=== PATIENT | male | born 1945 | race Caucasian/White ===

== ENCOUNTER 2019-09-14 11:21 | Outpatient (RCR) | payer MEDICARE, SELFPAY | END 2019-09-14 23:59 | disposition home or self-care (01) | LOC: ANHAUDIO 11:21 | PROVIDERS: PCP Family Medicine; Visit Provider Family Medicine | DX: Z46.1 Encounter for fitting and adjustment of hearing aid (principal) | CPT/HCPCS: 92592 ==

== ENCOUNTER 2019-09-22 07:32 | Outpatient (RCR) | payer SELFPAY | END 2020-04-14 14:24 | disposition home or self-care (01) | LOC: ANHCPRIII 07:32 | PROVIDERS: Visit Provider Family Medicine | DX: I25.10 Atherosclerotic heart disease of native coronary artery without angina pectoris (principal); I10 Essential (primary) hypertension | CPT/HCPCS: 99199 ==

== ENCOUNTER → 2020-09-16 15:44 | Outpatient (CLI) | payer MEDICARE, SELFPAY ==
--- NOTE | ~2020-09-16 | XR_ITS ---
XR hip LT 2V w AP pelvis 09/16/2020 15:54 Indication: Left hip pain Procedure: 4 views left hip including AP pelvis Comparison: No prior studies for comparison. Findings: There is lower lumbar spondylosis partially visualized. 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 Osteopenia. Small bone island right femur proximally. No fracture or traumatic malalignment. No focal soft tissue abnormality. No foreign bodies. There are pelvic phleboliths. Impression: 1: Mild symmetric osteoarthritis of the hips. Reviewed, dictated and finalized at location A. NUT GROWER Impression: 1: Mild symmetric osteoarthritis of the hips.
== END ==
PROVIDERS: Visit Provider Nurse Practitioner Family
DX: M16.0 Bilateral primary osteoarthritis of hip (principal)
CPT/HCPCS: 73502

== ENCOUNTER → 2020-09-23 13:51 | Outpatient (CLI) | payer MEDICARE, SELFPAY ==
--- NOTE | ~2020-09-23 | US_ITS ---
EXAMINATION: US scrotum doppler DATE: 09/23/2020 14:20 INDICATION: Left testicular pain. TECHNIQUE: Testicular sonogram utilizing grayscale and Doppler COMPARISON: None. FINDINGS: The right testis and epididymis are not visualized and were reportedly resected in 1965. The left jhon tis measures 2.5 x 1.2 x 2.5 cm. Normal grayscale appearance and normal-appearing intratesticular vas cular flow on color Doppler. Interval decrease in size of a now 4 x 4 x 1 mm anechoic to mucous cyst at the periphery of the left testis. Again noted are a few tiny microliths at the periphery of the le ft testis in the region of the tunica cyst. Also unchanged are a few larger echogenic and shadowing e xtratesticular scrotoliths. There are couple 3-4 mm anechoic left epididymal cysts. The left epididym is is otherwise normal with normal vascular flow. There is no varicocele or hydrocele. IMPRESSION: 1. Decrease in size of a benign tunica cyst at the periphery of the left testis with a few unchanged adjacent tiny microliths. A few unchanged larger scrotoliths in the left hemiscrotum. 2. Right testis and epididymis not visualized and reportedly surgically absent. Reviewed, dictated and finalized at location B. IMPRESSION: 1. Decrease in size of a benign tunica cyst at the periphery of the left testi s with a few unchanged adjacent tiny microliths. A few unchanged larger scrotol iths in the left hemiscrotum. 2. Right testis and epididymis not visualized and reportedly surgically absent.
== END ==
PROVIDERS: PCP Family Medicine; Visit Provider Nurse Practitioner Family
DX: N50.812 Left testicular pain (principal)
CPT/HCPCS: 76870; 93976

== ENCOUNTER 2022-02-28 11:28 | Outpatient (CLI) | payer MEDICARE, SELFPAY ==
[2022-02-28 11:49] LABS: Basophils Absolute Auto 0.1 K/mm3 (0.0-0.1); Eosinophils Absolute Auto 0.4 K/mm3 (0-0.3); Eosinophils Percent Auto 4.4 % (0-4.4); Hematocrit 44.2 % (42.0-52.0); Hemoglobin 13.8 g/dL (14.0-18.0); Immature Granulocyte Absolute 0.07 K/mm3 (0.00-0.031); Immature Granulocyte Percent A 0.9 % (0-0.5); Lymphocytes Absolute Auto 2.38 K/mm3 (0.9-3.2); Mean Corpuscular HGB Conc 31.2 g/dl (32-36); Mean Corpuscular Hemoglobin 30.3 pg (26-34); Mean Corpuscular Volume 96.9 fl (80-100); Mean Platelet Volume 10.5 fl (7.4-10.4); Monocytes Absolute Auto 0.8 K/mm3 (0.1-0.6); Monocytes Percent Auto 9.4 % (2.6-8.5); Neutrophils Absolute Auto 4.3 K/mm3 (1.3-6.7); Neutrophils Percent Auto 54.3 % (45.5-73.1); Platelet Count Result 144 k/mm3 (150-375); Red Blood Count 4.56 M/mm3 (4.6-6.20); Red Cell Distribution Width 13.8 % (11.5-14.5); White Blood Count 7.9 K/mm3 (4.5-10.0)
[2022-02-28 11:56] LABS: Alanine Aminotransferase 26 U/L (6-50); Albumin Level 4.5 g/dL (3.5-5.1); Alkaline Phosphatase 70 U/L (38-126); Anion Gap 8 mmol/L (8-16); Aspartate Amino Transferase 31 U/L (17-59); Bilirubin,Total 0.3 mg/dL (0.2-1.3); Blood Urea Nitrogen 15 mg/dL (9-20); Carbon Dioxide 26 mmol/L (22-30); Chloride 105 mmol/L (98-107); Estimated Glomerular Filt Rate > 60; Glucose 102 mg/dL (65-110); Potassium 4.5 mmol/L (3.4-5.0); Sodium 139 mmol/L (137-145)
== END 2022-02-28 11:29 | disposition home or self-care (01) ==
PROVIDERS: PCP Family Medicine; Visit Provider Internal Medicine Cardiovascular Disease
DX: I50.32 Chronic diastolic (congestive) heart failure (principal)
CPT/HCPCS: 36415; 80053; 85025

== ENCOUNTER 2022-06-21 14:31 | Outpatient (CLI) | payer MEDICARE, SELFPAY ==
--- NOTE | ~2022-06-21 | CT_ITS ---
EXAMINATION: CT abdomen pelvis w con INDICATION: Right lower quadrant pain TECHNIQUE: Computed tomographic images of the abdomen and pelvis were obtained after the administrati on of 100 cc of Omnipaque 350 intravenous contrast. The dose-length product (DLP) was 1323.74 mGy-cm. Automated exposure control and iterative reconstruction technique were employed. COMPARISON: None available FINDINGS: Minimal dependent atelectasis is present in the lung bases. The heart size is normal. Round ed atelectasis noted in the lingula adjacent to a healed left rib fracture. The gallbladder is surgic ally absent. There is mild enlargement of the common bile duct and central intrahepatic ducts which i s likely due to post cholecystectomy state. The liver, spleen, pancreas, and adrenal glands are marga l. Hypoattenuating lesions in the kidneys, measuring up to 6 mm on the right, are too small to charac terize but likely represent cysts. No pathologically enlarged abdominal or pelvic lymph nodes are kevin ntified. There is no free intraperitoneal gas or evidence of bowel obstruction. There is a small umbi lical hernia containing fat. Colonic diverticulosis is present without evidence of diverticulitis. Th ere is severe lumbar spondylosis. Prostatomegaly is noted. There is circumferential wall thickening o f the urinary bladder. IMPRESSION: 1. Circumferential wall thickening of the urinary bladder which could reflect cystitis versus chronic outlet obstruction. 2. Diverticulosis without evidence of diverticulitis. Reviewed, dictated and finalized at location A. [employer] SALES REPRESENTATIVE IMPRESSION: 1. Circumferential wall thickening of the urinary bladder which could reflect c ystitis versus chronic outlet obstruction. 2. Diverticulosis without evidence of diverticulitis.
== END 2022-06-21 14:32 | disposition home or self-care (01) ==
PROVIDERS: PCP Family Medicine; Visit Provider Physician Assistant
DX: R10.31 Right lower quadrant pain (principal); R10.813 Right lower quadrant abdominal tenderness; K57.30 Diverticulosis of large intestine without perforation or abscess without bleeding
CPT/HCPCS: 74177; Q9967

== ENCOUNTER 2022-08-21 10:55 | Outpatient (CLI) | payer MEDICARE, SELFPAY ==
[2022-08-21 11:34] LABS: Alanine Aminotransferase 28 U/L (6-50); Aspartate Amino Transferase 41 U/L (17-59)
== END 2022-08-21 10:56 | disposition home or self-care (01) ==
PROVIDERS: PCP Family Medicine; Visit Provider Podiatrist Foot & Ankle Surgery
DX: B35.1 Tinea unguium (principal)
CPT/HCPCS: 36415; 84450; 84460

== ENCOUNTER → 2023-01-03 14:33 | Outpatient (CLI) | payer MEDICARE, SELFPAY ==
--- NOTE | ~2023-01-03 | XR_ITS ---
EXAM: XR knee LT 3V DATE: 01/03/2023 14:46 HISTORY: M25.562 - Pain in left knee . COMPARISON: 02/01/2014. FINDINGS: Normal mineralization. No fracture or dislocation. No lytic or blastic lesion. Mild medial joint space narrowing. Mild tricompartmental osteophytosis. Quadriceps enthesopathy. No erosion or p eriosteal change. Vascular calcifications. Small knee joint effusion. IMPRESSION: Mild tricompartmental left knee osteoarthritis. Reviewed, dictated and finalized at location K.
== END ==
PROVIDERS: PCP Physician Assistant; Visit Provider Physician Assistant
DX: M17.12 Unilateral primary osteoarthritis, left knee (principal)
CPT/HCPCS: 73562

== ENCOUNTER 2023-02-11 11:00 | Outpatient (RCR) | payer MEDICARE, SELFPAY ==
--- NOTE | 2023-01-21 09:44 | OPREHPOC ---
Outpatient Therapy Plan of Care This is a Multidisciplinary Plan of Care that may contain components documented by all disciplines (PT, OT, and ST.) PT Problem 1 PT Problem #1 Knowledge Deficit PT Goal 1 Goal 1* pt indep with HEP PT Problem 2 PT Problem #2 Pain PT Goal 1 Goal 1* pain at worst rating of 7/10 2* pt report walking tolerance of 40 min PT Problem 3 PT Problem #3 Impaired Range of Motion PT Goal 1 Goal sitting active L knee ROM 1* flexion 120' 2* extension 0' 3* hamstring length with supine SLR 50' PT Problem 4 PT Problem #4 Impaired Strength PT Goal 1 Goal 1* pt able to perform 20 reps of mat strengthening exercises L LE
--- NOTE | 2023-01-21 09:44 | PTOPEVAL1 ---
Assessment and note entered by Candi Saunders, PT Evaluation Information Assessment Status Evaluation Diagnosis pain L knee Onset November 2022 Subjective Information about 2 months ago, more knee pain, nothing happened to hurt his knee; ACTIVE: indep with all home and self care tasks, walk dogs, except mow yard; use cane for balance, have used for past few years off/on, but now almost all the time; can do all his usual things, but pain in his knee makes him take longer to do things; does not do any fitness exercises at home; xray report stated: mild tricompartmental OA ; Reported Pain Level Pain Score Self Report Additional Pain Score Comments pain range in past week 2-10/10; hurts medial and lateral patellar areas--binding up, not able to bend all the way; use cane all the time now, was PRN; feels like going to give out sometimes; discussed use of knee support brace--velcro; use grocery cart with shopping; increase pain with stairs, walking tolerance 30 min, then have to sit down have had more R hip and back pain since knee worse instructed on stair pattern, single leg pattern decrease pain with sit/rest, muscle cream have not tried ice- instruct on PRN use of heat/ ice, has tried heat, maybe helps a little to ease it Assessment PT Clinical Summary Cesar has the diagnosis of L knee pain. His medical history includes low back pain, L hip pain and use a cane due to balance, for the past few years. Xray report states mild tricompartmental OA. He does not do any leg exercises. With the evaluation: decreased L knee flexion and extension AROM and strength, with flexion causing more pain; tightness over hamstring and quad- anterior hip; unable to tolerate single leg standing on L due to pain in knee and decreased balance. Skilled PT services are indicated for modalities to decrease pain, therapeutic exercises to increase hip and knee strength and flexibility and education for home exercises and pain control. Plan of Care Interventions Electrical Stimulation,Hot Pack/Cold Pack,Manual T
--- NOTE | 2023-02-11 11:37 | PTOPDC ---
Assessment and note entered by Candi Saunders, PT Evaluation Information Assessment Status Discharge Diagnosis pain L knee Onset November 2022 Subjective Information Cesar reports: knee is better; doing his exercises at home; feel like ready to be finished with therapy. use cane when walking on uneven surfaces Reported Pain Level Pain Score Self Report Additional Pain Score Comments pain range in the past week 1-5/10; inside knee still hurts, but outside is feeling better reported walking tolerance 45 min continuous walking when walk the dogs; decrease pain with ice, stim unit, heat, linament, heat; Assessment PT Clinical Summary Cesar has received 7 PT sessions. He uses the cane PRN for uneven surfaces, for safety. Compared to the initial evaluation: he has improved in all areas: pain rating decreased from 2-10/10 to 1-5/10; reported walking tolerance increased 30 to 45 minutes; knee active flexion ROM and hamstring length with supine SLR; strength with mat and standing LE exercises; education completed for HEP and self management of pain. The goals were achieved. Discharge PT services. Plan of Care PT Services Indicated No
== END 2023-02-11 13:09 | disposition home or self-care (01) ==
LOC: ANHPT 11:00
PROVIDERS: PCP Physician Assistant; Visit Provider Physician Assistant
DX: M25.562 Pain in left knee (principal)
CPT/HCPCS: 97110; 97112; 97140; 97161; 97530

== ENCOUNTER 2023-04-15 15:31 | Outpatient (CLI) | payer MEDICARE, SELFPAY ==
[2023-04-15 16:32] LABS: Basophils Absolute Auto 0.1 K/mm3 (0.0-0.1); Basophils Percent Auto 0.7 % (0.2-1.2); Eosinophils Absolute Auto 0.2 K/mm3 (0-0.3); Eosinophils Percent Auto 2.2 % (0-4.4); Hematocrit 45.3 % (42.0-52.0); Hemoglobin 14.1 g/dL (14.0-18.0); Immature Granulocyte Percent A 0.9 % (0-0.5); Lymphocytes Absolute Auto 2.22 K/mm3 (0.9-3.2); Lymphocytes Percent Auto 20.1 % (18.3-44.2); Mean Corpuscular HGB Conc 31.1 g/dl (32-36); Mean Corpuscular Hemoglobin 30.1 pg (26-34); Mean Corpuscular Volume 96.6 fl (80-100); Mean Platelet Volume 10.6 fl (7.4-10.4); Monocytes Absolute Auto 1.2 K/mm3 (0.1-0.6); Monocytes Percent Auto 10.4 % (2.6-8.5); Neutrophils Absolute Auto 7.3 K/mm3 (1.3-6.7); Neutrophils Percent Auto 65.7 % (45.5-73.1); Platelet Count Result 178 k/mm3 (150-375); Red Blood Count 4.69 M/mm3 (4.6-6.20); Red Cell Distribution Width 13.9 % (11.5-14.5); White Blood Count 11.1 K/mm3 (4.5-10.0)
[2023-04-15 16:42] LABS: CRP 7.8 mg/dL (<1.0); Uric Acid 4.1 mg/dL (3.5-8.5)
[2023-04-15 17:29] LABS: Erythrocyte Sedimentation Rate 20 mm/hr (0-20)
== END 2023-04-15 15:32 | disposition home or self-care (01) ==
PROVIDERS: PCP Family Medicine; Visit Provider Family Medicine
DX: M25.50 Pain in unspecified joint (principal); L03.90 Cellulitis, unspecified
CPT/HCPCS: 36415; 84550; 85025; 85652; 86140

== ENCOUNTER 2023-08-09 08:05 | Outpatient (CLI) | payer MEDICARE, SELFPAY ==
--- NOTE | 2023-08-09 08:18 | ECG_ITS ---
Measurements Intervals [place] Rate: 61 P: 58 SD: 192 QRS: 53 QRSD: 106 T: 25 QT: 416 QTc: 421 Interpretive Statements SINUS RHYTHM WITHIN NORMAL LIMITS NO PREVIOUS ECG AVAILABLE FOR COMPARISON Electronically Signed On 08-09-2023 13:50:13 RN MILITARY by Murali Vivar M.D.
[2023-08-09 08:51] LABS: Phenytoin Dilantin 9 ug/mL (10-20)
== END 2023-08-09 08:06 | disposition home or self-care (01) ==
LOC: ANHSURGERY 08:10
PROVIDERS: Anesthesiology; PCP Family Medicine; Visit Provider Surgery
DX: K40.90 Unilateral inguinal hernia, without obstruction or gangrene, not specified as recurrent (principal); I10 Essential (primary) hypertension; G40.909 Epilepsy, unspecified, not intractable, without status epilepticus; Z01.818 Encounter for other preprocedural examination
CPT/HCPCS: 36415; 80185; 86850; 86900; 86901; 93005

== ENCOUNTER 2023-08-15 00:54 | Day surgery (SDC) | payer MEDICARE, SELFPAY ==
--- NOTE | 2023-08-08 09:50 | PC.NURSE ---
Report to the Outpatient Waiting Room, entrance under the green pavilion located off [facility], at time _1200 on date __08/15/23 . Planned Procedure Time: __2:00PM . Time changes happen often and if your time is changed the preop area will call you the afternoon before. - You and your visitor will be asked to self-screen and do not enter if you have any COVID symptoms. - A mask is optional within the hospital at this time. Patients may have clear liquids (water, carbonated beverages, clear teas, apple juice) until 3 hours prior to surgery( 11:00 AM) with a maximum of 20 ounces. - No food from midnight until time of surgery - Infants may have breast milk until 4 hours before surgery, infant formula 6 hours prior to surgery. - Children will be allowed to drink immediately following surgery. If applicable, please bring a bottle or sippy cup to assist with drinking. Juice, water, soda, and popsicles are readily available. For infants on formula, please bring formula the day of surgery. Pacifiers are allowed. Take the following medications with a SIP of water the morning of surgery: _LEVOTHYROXINE,PAROXETINE,PHENYTOIN, PREGABALIN DO NOT STOP ANY OF YOUR OTHER PRESCRIPTION MEDICATIONS PRIOR TO SURGERY ?EXCEPT THE FOLLOWING Medications to discontinue per physician __HOLD VITAMINS AND SUPPLEMENTS 3 DAYS PRE OP.LAST DOSE 08/11/23. MAY CONTINUE ASPIRIN [address] WILKINSON BUT DO NOT TAKE MORNING OF SURGERY Please no make-up, nail yi, hairspray, perfume, deodorant, or body powder the day of surgery. No jewelry (including any body piercings) or valuables the day of surgery, leave them at home. Please take a shower or bath the night before, or the morning of, surgery with an antibacterial soap. Wear comfortable, loose fitting clothing. Children are encouraged to wear pajamas. - Jewelry must be removed prior to entering the operating room. Rings and piercings that are not removed may be cut off. - The hospital will not accept responsibility for valuables. - Please leave all valuables, including medications, at home the day of surgery. If you are going home after surgery, a licensed truck driver's offsider must drive you home. - NO public transportation without another adult if you receive anesthesia. - We recommend that an adult stay with you for 24 hours following discharge. - We also recommend that you do not drive, make important decision, drink alcoholic beverages, or take any drugs that were not prescribed by your health care provider for at least 24 hours after your discharge time. For Pediatric surgeries, we recommend two adults accompany the child home. Follow any additional instructions given to you from your surgeon. If you or anyone in your household have experienced Covid symptoms in the past week, please notify your surgeon or the nurse liaison at the phone number below for possible testing. Telephone instructions given to _PATIENT and asked if any additional questions and then verbalized understanding. Patient advised to call surgeon office or pre surgery nurse liaison [phone] if any additional questions.
[2023-08-08 10:06] VITALS: BMI 37.5
[2023-08-15] VITALS (9 sets, daily range): BP systolic 110–152; BP diastolic 47–87; PULSE 64–82; RESP 14–18; TEMP 36.2–36.7; O2SAT 90–98
--- NOTE | 2023-08-15 11:13 | WPDHPUPDATE1 ---
History and Physical Update Update Date/Time: 08/15/23 11:13 History and Physical has been reviewed, including an updated exam of the patient. There are NO changes in the patient's condition. Risks, benefits, and alternatives have been discussed and questions answered. Patient agrees to proceed with procedure.
[2023-08-15] MEDS: ACETAMINOPHEN 500 MG TABLET 1000 MG PO (12:05)
[2023-08-15] MEDS: LACTATED RINGERS 1,000 ML 30 ML IV CONT ×2 (12:49→15:22)
[2023-08-15] MEDS: KETOROLAC 15 MG/ML VIAL (*BKC) IV PUSH (12:51)
[2023-08-15] MEDS: ceFAZolin 2 GM/D5W 50 ML 2 GM/50 ML BAG IVPB (13:38)
[2023-08-15] MEDS: BUPIVACAINE/EPINEPHRINE 0.5% 30 ML VIAL INFILTRATE (14:05)
--- NOTE | 2023-08-15 14:49 | W.PM.PROC2 ---
Procedure Note - Detailed Date of Procedure 08/15/23 Pre-op Diagnosis Left Inguinal Hernia Post-op Diagnosis Same Procedure Performed robotic assisted left inguinal hernia repair with mesh Surgeon Julissa Lozada MD Anesthesia General Indications 78 y/o M c LIH and worsening groin pain over last few weeks Findings pantaloon left inguinal hernia, indirect>direct Description of Procedure Patient was brought into the operating room and placed in the supine position. After adequate induction of general anesthesia, the patient was prepped and draped in normal sterile fashion. A time-out was then done to verify the patient's identity, as well as the procedure being performed. I began by making a 8 mm incision in the supraumbilical region, a Veress needle was then placed into the peritoneal cavity. CO2 gas was then insufflated and after adequate pneumoperitoneum was achieved, the Veress needle was removed. I then placed an 8 mm trocar through this incision. I then placed the laparoscopr through this trocar site and under direct visualization placed 2 further 8 mm ports in the right and left mid abdomen. The Octmamii robot was then docked to the 3 trocar sites. I then scrubbed out and went to the robotic console. Upon examining the pelvis, it was noted that the patient had a large left inguinal hernia. The right side was examined and no hernia defect was noted, though there was scarring from previous repair. I began by making a preperitoneal flap approximately 6 cm superior to the defect. This flap was carried medially past the umbilical ligaments and laterally to the transversalis. Of note, there was a lot of fatty tissue within this plane making the dissection quite difficult. I then began dissection of my medial compartment taking this down to the pubic tubercle. A small direct defect was encountered and reduced. I then began the lateral dissection taking this down to the transversalis fascia. Once these compartments were achieved, I began dissection around the cord structures. A moderate sized indirect hernia was noted at this point. Using careful dissection, was able to reduce indirect hernia sac off the cord structures. I also reduced a large lipoma of the cord. Once this was adequately done, I went ahead and placed a large piece of 3D Max mesh into the abdominal cavity. The mesh was carefully positioned, centering the center of the mesh over the larger indirect defect. Once this was done, was very satisfied with our repair. Using 3-0 Vicryl sutures, I tacked the mesh medially to Meño's ligament. Two lateral sutures were placed from the mesh to the transversalis fascia. I then closed the peritoneal flap with a running 2.0 V Lock suture. The abdomen was then desufflated, and all ports were removed. All incisions were then closed with the 4.0 monocryl suture. Dermabond was placed on each wound. The patient tolerated the procedure well, was extubated in the operating room postoperatively, and will now be transferred to the recovery room in stable condition. Implants large 3DMax mesh Estimated Blood Loss 10 Drains No Packing No Pathology None sent Complications No immediate complications Condition Stable Disposition PACU [facility] Billing Surgery - Charge Forward: Surgery Billing
--- NOTE | 2023-08-15 17:35 | SUR.PHASEII ---
1650 PT UP TO RESTROOM, VOIDED SUCCESSFULLY.
--- NOTE | 2023-09-11 13:03 | WPDANESEPPF ---
Anes - Initial Pre Proc Eval Procedure: Operation Date: 08/15/23 14:00 Proposed Procedures p Robotic Assisted Laparoscopic Left Inguinal Hernia Repair with Mesh - Julissa Lozada MD Date/Time: 09/11/23 13:03 Surgeon: Julissa Lozada MD Pre Op Diagnosis: Left Inguinal Hernia Patient Data Age: 78 Gender: M Height: 1.7 m Weight: 110 kg Last Vital Signs Temp 36.2 C L 08/15/23 14:55 Pulse 72 08/15/23 16:50 Resp 14 08/15/23 15:50 BP 137/69 08/15/23 16:50 Pulse Ox 95 08/15/23 16:00 O2 Del Method Room Air 08/15/23 16:00 O2 Flow Rate 6 08/15/23 15:10 Allergies Allergy/AdvReac Type Severity Reaction Status Date / Time No Known Allergies Allergy Unknown Verified 09/06/23 13:21 Home Medications Medication Instructions Recorded Confirmed Type aspirin 81 mg tablet,delayed 81 mg PO DAILY 08/25/19 09/06/23 History release zrxmbtlvqar-vpjuqubcz-gxo C-Mn 500 1 cap PO DAILY 08/25/19 09/06/23 History mg-400 mg capsule (Glucosamine Chondroitin Maximum Strength) omega-3 fatty acids 1,000 mg 1,000 mg PO DAILY 08/25/19 09/06/23 History capsule (Fish Oil Concentrate) pregabalin 150 mg capsule (Lyrica) 150 mg PO TID 08/26/19 09/06/23 History empagliflozin 10 mg tablet 10 mg PO DAILY CHF 04/04/22 09/06/23 History (Jardiance) atorvastatin 80 mg tablet See Rx Instructions .Route 09/12/22 09/06/23 Rx .COMPLEX #100 tabs phenytoin sodium extended 100 mg See Rx Instructions .Route 04/15/23 09/06/23 Rx capsule .COMPLEX #500 caps tamsulosin 0.4 mg capsule (Flomax) 0.8 mg PO QHS #180 caps 05/13/23 09/06/23 Rx fenofibrate 160 mg tablet See Rx Instructions .Route 06/10/23 09/06/23 Rx .COMPLEX #100 tabs levothyroxine 88 mcg tablet See Rx Instructions .Route 06/10/23 09/06/23 Rx .COMPLEX #100 tabs paroxetine HCl 20 mg tablet 20 mg PO DAILY #90 tabs 07/15/23 09/06/23 Rx B6 1.7 mg-folic 400 mcg-B12 2.4 1 cap PO DAILY 07/31/23 09/06/23 History vzy-nemmfm-qmleynpdanjh oral capsule (Neuriva Plus Brain Performance) finasteride 5 mg tablet 5 mg PO DAILY 07/31/23 09/06/23 History fluticasone propionate 0.05 % 1 applic topical DAILY 07/31/23 09/06/23 History topical cream multivitamin 1 tablet PO QPM 07/31/23 09/06/23 History terbinafine 250 mg oral 1 ea miscellaneous WEEKLY 07/31/23 09/06/23 History tablet-hydroxypropyl chitosan 1 % topical kit sacubitril 49 mg-valsartan 51 mg 1 tablet PO BID 08/08/23 09/06/23 History tablet (Entresto) vibegron 75 mg tablet (Gemtesa) 75 mg PO DAILY 08/08/23 09/06/23 History Patient hx anesthesia problems: none Family hx anesthesia problems: none Results Review: All pre-operative results and documents have been reviewed as part of the pre-operative evaluation. [facility] Past Medical History Medical History BPH loc w urin obs/LUTS Chronic diastolic CHF (congestive heart failure) Prurigo nodularis Surgical History Surgical History (Updated 09/06/23 @ 13:41 by Indu Arambula [facility]) History of appendectomy History of cholecystectomy History of shoulder surgery bilateral Hx of inguinal hernia repair robotic assisted left inguinal hernia repair with mesh 08/15/23 PDC Family History Family History Father Hypertension Cerebrovascular accident Family history of coronary artery disease Mother Family history of primary malignant neoplasm of liver Social History Social History Smoking packs per day: 3 Smoking cigarettes per day: 60.0 Years smoked: 15 Smoking pack-years: 45.00 Smoking status: Former smoker Tobacco type: cigarettes Second hand tobacco smoke exposure: Yes Smoking end date: 07/08/91 Alcohol intake: never Alcohol use details: rare Substance use: never Substance use type: does not use Living arrangements: with family
== END 2023-08-15 17:10 | disposition home or self-care (01) ==
PROVIDERS: PCP Family Medicine; Visit Provider Surgery
PROC: 8E0Y4CZ Robotic Assisted Procedure of Lower Extremity, Percutaneous Endoscopic Approach (ICD-10-PCS; CPT 49650; principal; 2023-08-15 14:00)
DX: K40.90 Unilateral inguinal hernia, without obstruction or gangrene, not specified as recurrent (principal); I50.32 Chronic diastolic (congestive) heart failure; I11.0 Hypertensive heart disease with heart failure; G47.33 Obstructive sleep apnea (adult) (pediatric); N40.1 Benign prostatic hyperplasia with lower urinary tract symptoms; N13.8 Other obstructive and reflux uropathy; Z87.891 Personal history of nicotine dependence; Z79.84 Long term (current) use of oral hypoglycemic drugs
CPT/HCPCS: 49650; S2900; 36415; 80185; 86850; 86900; 86901; 93005; A9270; C1781; J0690; J1100; J1885; J2001; J2250; J2405; J2704; J3010; J7120

== ENCOUNTER 2024-09-23 10:19 | Outpatient (CLI) | payer MEDICARE, SELFPAY ==
--- NOTE | ~2024-09-23 | XR_ITS ---
Right Knee Technique: AP and lateral views were obtained. Clinical History: Pain Findings: No fracture or dislocation is seen. Osseous alignment is anatomic. Joint spaces are preserv ed, with minimal patellar spurring. Soft tissues are unremarkable. No joint effusion is seen. Impression: Minimal patellar spurring. Reviewed, dictated and finalized at location . Impression: Minimal patellar spurring.
== END 2024-09-23 10:20 | disposition home or self-care (01) ==
PROVIDERS: PCP Family Medicine; Visit Provider Family Medicine
DX: M25.561 Pain in right knee (principal); M25.562 Pain in left knee
CPT/HCPCS: 73560

== ENCOUNTER 2024-12-14 13:25 | Outpatient (CLI) | payer MEDICARE, SELFPAY ==
--- NOTE | ~2024-12-14 | XR_ITS ---
EXAMINATION: XR chest 2V Exam Date/Time: 12/14/2024 13:28 CDT HISTORY: I50.32 - Chronic diastolic (congestive) heart failure Comparison: 09/16/2012; CT abdomen pelvis 06/21/2022. RESULT: Lines, tubes, and devices: None. Lungs and pleura: Mild diffuse reticular opacities. Fissural fluid. Chronic focus of rounded atelect asis in the lingula. Cardiomediastinal silhouette: Dilated central pulmonary arteries as can be seen with pulmonary hyper tension. Otherwise stable size and configuration. Other: No acute osseous or upper abdominal finding. IMPRESSION: Mild interstitial edema. Radiographic findings suggestive of pulmonary hypertension. Reviewed, dictated and finalized at location K. IMPRESSION: Mild interstitial edema. Radiographic findings suggestive of pulmonary hyperten yue.
== END 2024-12-14 13:26 | disposition home or self-care (01) ==
LOC: MICIMG 13:26
PROVIDERS: PCP Family Medicine; Visit Provider Physician Assistant
DX: J44.9 Chronic obstructive pulmonary disease, unspecified (principal); I50.32 Chronic diastolic (congestive) heart failure
CPT/HCPCS: 71046